=== PATIENT | male | born 1970 | race Two or more races ===

== ENCOUNTER 2018-01-08 01:36 | Emergency (ER) | payer SELFPAY ==
[~2018-01-08] VITALS: Ht 175.3 cm; Wt 68.0 kg
--- NOTE | 2018-01-08 02:00 | NUR ---
PT BBRA [id number] FROM [facility] C/C OF "IM TIRED OF MY LIFE". -SI, -HI. +ETOH ODOR NOTED COMING FROM PT. PT STATES "I DRANK 3 BEERS". VSS. SKIN WNL. PT IS AAOX4. RESP EVEN AND UNLABORED. NO S/S OF ACUTE DISTRESS NOTED. PT PLACED ON MONITOR AND POX. PT SAFETY AND COMFORT MEASURES IN PLACE. BEDSIDE FOR EVAL
--- NOTE | 2018-01-08 02:04 | NUR ---
PT TO RESTROOM TO GIVE URINE SAMPLE
[2018-01-08 02:26] LABS: BASOPHILS # (AUTO) 0.2 /CMM (0.0-0.2); BASOPHILS % (AUTO) 2.3 % (0.0-2.0); EOSINOPHILS % (AUTO) 2.2 % (0.0-6.0); HEMATOCRIT 35 % (39-51); HEMOGLOBIN 11.7 g/dL (13.5-17.5); LYMPHOCYTES # (AUTO) 2.6 /CMM (0.8-4.8); LYMPHOCYTES % (AUTO) 36.1 % (20.0-44.0); MEAN CORPUSCULAR HGB CONC 33 g/dl (31.0-36.0); MEAN CORPUSCULAR VOLUME 101 fL (80-96); MONOCYTES # (AUTO) 0.6 /CMM (0.1-1.30); MONOCYTES % (AUTO) 7.8 % (2.0-12.0); NEUTROPHILS # (AUTO) 3.8 /CMM (1.8-8.9); NEUTROPHILS % (AUTO) 51.6 % (43.0-81.0); PLATELET COUNT (AUTO) 524 /CMM (150-450); RDW COEFFICIENT OF VARIATION 15.4 (11.5-15.0); RED BLOOD CELL COUNT(AUTO) 3.49 MIL/uL (4.5-6.0); WHITE BLOOD COUNT (AUTO) 7.3 K/uL (4.3-11.0)
[2018-01-08 02:46] LABS: ALBUMIN 3.3 g/dL (3.4-5.0); BILIRUBIN,TOTAL 0.2 mg/dL (0.2-1.0); CALCIUM, SERUM 7.6 mg/dL (8.5-10.1); CREATININE 0.8 mg/dL (0.6-1.3); POTASSIUM 3.5 mmol/L (3.5-5.1); TOTAL PROTEIN, SERUM 7.2 g/dL (6.4-8.2)
[2018-01-08 03:12] LABS: SALICYLATE 2.4 mg/dL (2.8-20.0)
--- NOTE | 2018-01-08 07:34 | NUR ---
REPORT GIVEN TO CALIXTO SEN AND CALIXTO MCDANIELS FOR JOSE LUIS.
--- NOTE | 2018-01-08 10:08 | NUR ---
Patient is resting comfortably in bed with eyes closed. Easily aroused. VSS
[2018-01-08 12:32] VITALS: BP 124/78
== END 2018-01-08 12:32 | disposition home or self-care (01) ==
LOC: ER 01:38
DX: F10.229 Alcohol dependence with intoxication, unspecified (principal); F32.9 Major depressive disorder, single episode, unspecified; M79.672 Pain in left foot; M79.89 Other specified soft tissue disorders; Z59.0 Homelessness
CPT/HCPCS: 36415; 73630-TC; 80048-TC; 80076-TC; 80305; 85025-TC; A4606; G0480; Z7610

== ENCOUNTER 2018-12-14 03:13 | Emergency (ER) ==
[~2018-12-14] VITALS: Ht 170.2 cm; Wt 68.0 kg
--- NOTE | 2018-12-14 03:20 | NUR ---
BIB RA. FOUND UNCONSCIOUS AT [facility]. PT IS INTOXICATED. C/O SUICIDAL IDEATION EVIDENCED BY PT STATING "KILL ME." PT IS TELUGU SPEAKING. EMT REPORT THAT THE PT'S MOTHER JUST RECENTLY. TO ER BED 12. AWAITING MD FOR AVINASH
--- NOTE | 2018-12-14 03:25 | NUR ---
BODY CHECK DONE AND BELONGINGS FROM PT AND KEPT AT NURSING STATION
--- NOTE | 2018-12-14 04:20 | NUR ---
LAB TECT AT BEDSIDE FOR BLOOD DRAW
[2018-12-14 04:29] LABS: BASOPHILS # (AUTO) 0.1 /CMM (0.0-0.2); BASOPHILS % (AUTO) 2.3 % (0.0-2.0); EOSINOPHILS % (AUTO) 3.8 % (0.0-6.0); HEMATOCRIT 33 % (39-51); HEMOGLOBIN 11.1 g/dL (13.5-17.5); LYMPHOCYTES # (AUTO) 2.5 /CMM (0.8-4.8); LYMPHOCYTES % (AUTO) 40.1 % (20.0-44.0); MEAN CORPUSCULAR HGB CONC 34 g/dl (31.0-36.0); MEAN CORPUSCULAR VOLUME 92 fL (80-96); MONOCYTES # (AUTO) 0.4 /CMM (0.1-1.30); MONOCYTES % (AUTO) 6.6 % (2.0-12.0); NEUTROPHILS # (AUTO) 2.9 /CMM (1.8-8.9); NEUTROPHILS % (AUTO) 47.2 % (43.0-81.0); PLATELET COUNT (AUTO) 518 /CMM (150-450); RED BLOOD CELL COUNT(AUTO) 3.58 MIL/uL (4.5-6.0); WHITE BLOOD COUNT (AUTO) 6.2 K/uL (4.3-11.0)
[2018-12-14 04:39] LABS: CALCIUM, SERUM 8.3 mg/dL (8.5-10.1); POTASSIUM 3.5 mmol/L (3.5-5.1)
[2018-12-14 04:45] LABS: ALBUMIN 3.4 g/dL (3.4-5.0); BILIRUBIN,TOTAL 0.2 mg/dL (0.2-1.0); SALICYLATE 3.9 mg/dL (2.8-20.0); TOTAL PROTEIN, SERUM 7.3 g/dL (6.4-8.2)
[2018-12-14 04:54] LABS: APPEARANCE,URINE Clear (CLEAR); BILIRUBIN,URINE Negative (NEGATIVE); BLOOD, URINE Negative Ery/uL (NEGATIVE); COLOR,URINE Yellow (YELLOW); KETONES,URINE Negative (NEGATIVE); LEUKOCYTE ESTERASE ,URINE Negative (NEGATIVE); NITRITE, URINE Negative (NEGATIVE); PROTEIN,URINE Negative (NEGATIVE); UGLUCOSE Negative (NEGATIVE); UROBILINOGEN,URINE 0.2 EU/dL (0.2)
--- NOTE | 2018-12-14 05:50 | NUR ---
PT IN BED SLEEPING. EASILY ARROUSABLE
--- NOTE | 2018-12-14 07:15 | NUR ---
ASSUME PT CARE. PT IS SLEEPING, EASILY AROUSABLE. ON MONITOR. STABLE VITALS. KEPT COMFORTABLE. WILL CONTINUE TO MONITOR.
--- NOTE | 2018-12-14 07:38 | NUR ---
REPORT GIVEN TO CALIXTO FORD FOR JOSE LUIS
--- NOTE | 2018-12-14 11:45 | NUR ---
DR SORTO BACK AT BEDSIDE TALKING TO PT ABOUT PLAN OF CARE, DENIES ANY SI AT THIS TIME. REQUESTING HELP FROM MUNICIPAL SERVICES MANAGER.
--- NOTE | 2018-12-14 12:00 | NUR ---
TRACER CLERK TEMO AT BEDSIDE TALKING TO PT.
--- NOTE | 2018-12-14 12:08 | NUR ---
Social service consult requested by ED RN Benjie for homelessness and alcohol abuse. Per ER H&P, Pt. is a 48-year-old male who presents to the emergency department acutely intoxicated with complaints of suicidal ideation. Patient states that he has been depressed since his mother recently. He does also admit to drinking alcohol heavily tonight. Pt. denies any specific plan to hurt himself. GARETH met with pt. bedside. Pt. is Slovenian speaking. Myrna from admitting dept. assisted in translating. Pt. appeared disheveled. Pt's mood is congruent. Pt. has been homeless for the past 8 months. Pt. lives [address] in [place] and wants to go back there. Pt. was not able to state where he lived prior to becoming homeless. Pt. states he is feeling depressed since his mother , however denies any suicidal/homicidal ideations and visual/auditory hallucinations. Pt. is an alcoholic and drinks two 24 ounces of beer daily. Pt. has no source of income and stated he recycles to get his alcohol and panhandles to get food. SW offered pt. longterm placement, however pt. declined. Pt. is willing to get homeless resources that include meals, shower, housing. GARETH gave pt. the following resources: [facility] located at [address] [facility] ; [facility] [place], [address] [place] [address] [place]. [place] ; [facility] [place], [address] [facility]. A ; [facility] Homeless Resource Directory which includes food stamps, transitional housing, showers and hot meals etc; Mental Health clinics such as [facility] ; [facility] ; Health clinics;[facility] and Alcohol treatment centers such as [facility], ; [facility] Substance Abuse Hotline and [facility] . Pt. was offered lunch, however pt. declined. Pt. was provided with a TAP card. Homeless patient waiver form in Slovenian was signed by the pt. and placed in pt's chart. SW updated Dr. Monroy and pt's RN Benjie regarding pt's discharge plan.
--- NOTE | 2018-12-14 12:13 | NUR ---
Mal guerrero in ED - 12/14/18 at 1215 by STEVEN PEARL GLUE OPERATOR AND PT AMBULATORY W/ STEADY GAIT. MADELAINE JACOBS TALKED TO PEARL GLUE OPERATOR. D/C HOME IN STABLE CONDITION.
--- NOTE | 2018-12-14 12:13 | NUR ---
PT AMBULATORY W/ STEADY GAIT. DENIES SI. TALKED TO FIRE FIGHTING EQUIPMENT SPECIALIST. D/C HOME IN STABLE CONDITION.
[2018-12-14 12:16] VITALS: BP 116/62
== END 2018-12-14 12:17 | disposition home or self-care (01) ==
LOC: ER 03:15
DX: F10.129 Alcohol abuse with intoxication, unspecified (principal); F32.9 Major depressive disorder, single episode, unspecified; Z60.2 Problems related to living alone; Y90.8 Blood alcohol level of 240 mg/100 ml or more
CPT/HCPCS: 36415; 80048; 80076; 80305; 80307; 80329; 81001; 85025; 99283; G0480; 81000-TC

== ENCOUNTER 2019-02-08 16:01 | Emergency (ER) | payer MEDICAID ==
[~2019-02-08] VITALS: Ht 160 cm; Wt 72.6 kg
--- NOTE | 2019-02-08 16:15 | NUR ---
SHARYN AND [employer] FROM STREET C/O SI "I WANT TO RUN THRU TRAFFIC." SUICIDAL PRECAUTION INITIATED. STATES HE IS VERY DEPRESSED, JUST LOST EVERYTHING. DENIES SI IN THE PAST. CONTINUOUSLY ASKING FOR HELP. PT PLACED IN GOWN. SITTER AT BEDSIDE. READY FOR EVAL. WILL CONT TO MONITOR.
--- NOTE | 2019-02-08 16:21 | NUR ---
BLOOD DRAWN, URINE COLLECTED, PT WANDED BY SECURITY
[2019-02-08 16:23] LABS: BASOPHILS # (AUTO) 0.3 /CMM (0.0-0.2); BASOPHILS % (AUTO) 4.4 % (0.0-2.0); HEMATOCRIT 34 % (39-51); HEMOGLOBIN 11.2 g/dL (13.5-17.5); LYMPHOCYTES # (AUTO) 2.2 /CMM (0.8-4.8); LYMPHOCYTES % (AUTO) 35.1 % (20.0-44.0); MEAN CORPUSCULAR HGB CONC 33 g/dl (31.0-36.0); MEAN CORPUSCULAR VOLUME 94 fL (80-96); MONOCYTES # (AUTO) 0.8 /CMM (0.1-1.30); MONOCYTES % (AUTO) 12.1 % (2.0-12.0); NEUTROPHILS % (AUTO) 47.4 % (43.0-81.0); PLATELET COUNT (AUTO) 363 /CMM (150-450); WHITE BLOOD COUNT (AUTO) 6.4 K/uL (4.3-11.0)
[2019-02-08 16:30] LABS: APPEARANCE,URINE Clear (CLEAR); BILIRUBIN,URINE Negative (NEGATIVE); BLOOD, URINE Negative Ery/uL (NEGATIVE); COLOR,URINE Yellow (YELLOW); KETONES,URINE Negative (NEGATIVE); LEUKOCYTE ESTERASE ,URINE Negative (NEGATIVE); NITRITE, URINE Negative (NEGATIVE); PH,URINE 6.5 (5.0-8.0); PROTEIN,URINE Negative (NEGATIVE); UGLUCOSE Negative (NEGATIVE); UROBILINOGEN,URINE 0.2 EU/dL (0.2)
[2019-02-08 16:38] LABS: CALCIUM, SERUM 8.4 mg/dL (8.5-10.1); CARBON DIOXIDE 25 mmol/L (21-32); CHLORIDE 103 mmol/L (98-107); CREATININE 0.8 mg/dL (0.6-1.3); GLUCOSE 116 mg/dL (74-106); POTASSIUM 3.7 mmol/L (3.5-5.1); SODIUM SERUM 141 mmol/L (136-145); UREA NITROGEN, BLOOD 4 mg/dL (7-18)
[2019-02-08 16:44] LABS: ALANINE AMINOTRANSFERASE 72 U/L (12-78); ALBUMIN 3.5 g/dL (3.4-5.0); ALCOHOL, BLOOD 321 mg/dL (0-0); ALKALINE PHOSPHATASE 93 U/L (46-116); ASPARTATE AMINOTRANSFERASE 51 U/L (15-37); BILIRUBIN,DIRECT 0.1 mg/dL (0.0-0.2); BILIRUBIN,TOTAL 0.2 mg/dL (0.2-1.0); TOTAL PROTEIN, SERUM 7.6 g/dL (6.4-8.2)
--- NOTE | 2019-02-08 16:50 | NUR ---
BLOOD ALCOHOL LEVEL TOO HIGH AT THIS TIME. WILL REASSESS IN 2 HOURS BEFORE CALLING [employer] CUTTER [employer].
[2019-02-08 16:51] LABS: ACETAMINOPHEN < 2 ug/ml (10-30)
--- NOTE | 2019-02-08 18:09 | NUR ---
PT ASLEEP IN BED. NO COMPLAINTS AT THIS TIME. WILL CONT TO MONITOR.
[2019-02-08] MEDS ORDERED: LORAZEPAM 1 MG TABLET PO ONE (19:00)
[2019-02-08] MEDS ORDERED: LORAZEPAM 1 MG TABLET ONE (19:08)
--- NOTE | 2019-02-08 21:02 | NUR ---
PT STILL SLEEPING. SITTER AT BEDSIDE. VSS. WILL CONT TO MONITOR.
[2019-02-09 01:19] VITALS: BP 112/78
== END 2019-02-09 01:19 | disposition home or self-care (01) ==
LOC: ER 16:02
DX: F32.9 Major depressive disorder, single episode, unspecified (principal); F10.20 Alcohol dependence, uncomplicated; R45.851 Suicidal ideations; Y90.6 Blood alcohol level of 120-199 mg/100 ml
CPT/HCPCS: 36415; 80048; 80076; 80305; 80307 ×2; 80329; 81001; 84484; 85025; 99284; G0480; 81000-TC

== ENCOUNTER 2019-02-09 14:42 | Emergency (ER) | payer MEDICAID ==
[~2019-02-09] VITALS: Ht 175.3 cm; Wt 81.6 kg
--- NOTE | 2019-02-09 14:57 | NUR ---
[id number] [facility] FOR ETOH; VERBALIZES S/I WITH NO PLAN HT=[id number]. WAS SEEN HERE YESTERDAY FOR SAME ISSUE. DENIES HI OR A/V HALLUCINATIONS. SUICIDAL PRECAUTIONS IMPLEMENTED: PLACED IN GOWN, BELONGINGS BROUGHT TO NURSES' STATION, PT WANDED BY SECURITY. ER BED 14, READY FOR EVAL.
[2019-02-09 15:01] LABS: APPEARANCE,URINE Clear (CLEAR); BILIRUBIN,URINE Negative (NEGATIVE); BLOOD, URINE Negative Ery/uL (NEGATIVE); COLOR,URINE Yellow (YELLOW); KETONES,URINE Negative (NEGATIVE); LEUKOCYTE ESTERASE ,URINE Negative (NEGATIVE); NITRITE, URINE Negative (NEGATIVE); PROTEIN,URINE Negative (NEGATIVE); UGLUCOSE Negative (NEGATIVE); UROBILINOGEN,URINE 0.2 EU/dL (0.2)
[2019-02-09 15:07] LABS: BASOPHILS # (AUTO) 0.2 /CMM (0.0-0.2); EOSINOPHILS % (AUTO) 2.9 % (0.0-6.0); HEMATOCRIT 35 % (39-51); HEMOGLOBIN 11.5 g/dL (13.5-17.5); LYMPHOCYTES # (AUTO) 2.1 /CMM (0.8-4.8); MEAN CORPUSCULAR HGB CONC 33 g/dl (31.0-36.0); MEAN CORPUSCULAR VOLUME 93 fL (80-96); MONOCYTES # (AUTO) 0.7 /CMM (0.1-1.30); MONOCYTES % (AUTO) 11.8 % (2.0-12.0); NEUTROPHILS # (AUTO) 2.7 /CMM (1.8-8.9); NEUTROPHILS % (AUTO) 45.3 % (43.0-81.0); PLATELET COUNT (AUTO) 396 /CMM (150-450); WHITE BLOOD COUNT (AUTO) 5.9 K/uL (4.3-11.0)
[2019-02-09 15:31] LABS: ALBUMIN 3.6 g/dL (3.4-5.0); BILIRUBIN,DIRECT 0.1 mg/dL (0.0-0.2); BILIRUBIN,TOTAL 0.3 mg/dL (0.2-1.0); CALCIUM, SERUM 8.7 mg/dL (8.5-10.1); CREATININE 0.8 mg/dL (0.6-1.3); POTASSIUM 3.3 mmol/L (3.5-5.1); TOTAL PROTEIN, SERUM 7.6 g/dL (6.4-8.2)
[2019-02-09 16:14] LABS: ACETAMINOPHEN < 2 ug/ml (10-30); SALICYLATE < 2.8 mg/dL (2.8-20.0)
--- NOTE | 2019-02-09 17:38 | NUR ---
Patient is resting comfortably in bed with eyes closed. Easily aroused. VSS
--- NOTE | 2019-02-09 19:03 | NUR ---
PT PROVIDED FOOD TRAY
[2019-02-09] MEDS ORDERED: LORAZEPAM 1 MG TABLET ONE (20:55)
[2019-02-09] MEDS ORDERED: LORAZEPAM 1 MG TABLET PO ONE (21:00)
--- NOTE | 2019-02-09 21:27 | NUR ---
OIL FIELD CASER AT BEDSIDE FOR BLOOD ALCOHOL REDRAW
--- NOTE | 2019-02-09 23:16 | NUR ---
Patient is resting comfortably in bed with eyes closed. Easily aroused. VSS
--- NOTE | 2019-02-10 01:30 | NUR ---
PT RESTING IN BED, NAD NOTED. WILL CONTINUE TO MONITOR.
--- NOTE | 2019-02-10 04:07 | NUR ---
REPORT GIVEN TO CALIXTO VALLEJO FOR JOSE LUIS AT [facility].
--- NOTE | 2019-02-10 04:13 | NUR ---
RIKKI CALLED ETA [phone]. TRANSFER#[id number]
--- NOTE | 2019-02-10 06:18 | NUR ---
Mal guerrero in ED - 02/10/19 at 0621 by SOFIA Patient discharged to home in stable condition. Written and verbal after care instructions given. Patient verbalizes understanding of instruction.
--- NOTE | 2019-02-10 06:18 | NUR ---
PT REFUSED TRANSPORT TO [facility], STATES HE DOES NOT WANT TO GO THERE. PT DENIES HI/SI. SHAHRIAR RYAN AWARE.
[2019-02-10 06:21] VITALS: BP 125/70
--- NOTE | 2019-02-10 06:21 | NUR ---
Patient given written and verbal discharge instructions. Patient verbalizes understanding of instructions. Patient is ambulatory with steady gait. Refuses offer of detention placement. Patient given list of available shelters in surrounding area.
== END 2019-02-10 06:22 | disposition home or self-care (01) ==
LOC: ER 14:44
DX: F32.9 Major depressive disorder, single episode, unspecified (principal); F10.129 Alcohol abuse with intoxication, unspecified; Z60.2 Problems related to living alone; Z59.0 Homelessness; Y90.8 Blood alcohol level of 240 mg/100 ml or more
CPT/HCPCS: 36415 ×2; 80048; 80076; 80305; 80307 ×5; 80329; 81001; 85025; 99284; G0480; 81000-TC

== ENCOUNTER 2019-05-30 19:46 | Emergency (ER) | payer MEDICAID ==
[~2019-05-30] VITALS: Ht 172.7 cm; Wt 81.6 kg
--- NOTE | 2019-05-30 19:53 | NUR ---
URINE SAMPLE COLLECTED. PT GOWNED, ALL BELONGINGS REMOVED FROM ROOM. PENDING ER MD DA SILVA.
[2019-05-30 20:07] LABS: HEMOGLOBIN 10.4 g/dL (13.5-17.5); LYMPHOCYTES # (AUTO) 2.3 /CMM (0.8-4.8); MEAN CORPUSCULAR HGB CONC 32 g/dl (31.0-36.0); MONOCYTES # (AUTO) 0.6 /CMM (0.1-1.30); WHITE BLOOD COUNT (AUTO) 6.5 K/uL (4.3-11.0)
[2019-05-30] MEDS ORDERED: ACETAMINOPHEN ES 500 MG TABLET ONE (20:08)
[2019-05-30 20:11] LABS: BASOPHILS # (AUTO) 0.1 /CMM (0.0-0.2); BASOPHILS % (AUTO) 0.9 % (0.0-2.0); EOSINOPHILS % (AUTO) 5.7 % (0.0-6.0); HEMATOCRIT 32 % (39-51); LYMPHOCYTES % (AUTO) 35.8 % (20.0-44.0); MEAN CORPUSCULAR VOLUME 86 fL (80-96); MONOCYTES % (AUTO) 8.8 % (2.0-12.0); NEUTROPHILS # (AUTO) 3.2 /CMM (1.8-8.9); NEUTROPHILS % (AUTO) 48.8 % (43.0-81.0); PLATELET COUNT (AUTO) 384 /CMM (150-450); RED BLOOD CELL COUNT(AUTO) 3.71 MIL/uL (4.5-6.0)
[2019-05-30] MEDS: ACETAMINOPHEN 325 MG TABLET PO ONE (20:13)
[2019-05-30 20:14] LABS: APPEARANCE,URINE Clear (CLEAR); BILIRUBIN,URINE Negative (NEGATIVE); BLOOD, URINE Trace-intact Ery/uL (NEGATIVE); COLOR,URINE Yellow (YELLOW); KETONES,URINE Negative (NEGATIVE); LEUKOCYTE ESTERASE ,URINE Negative (NEGATIVE); NITRITE, URINE Negative (NEGATIVE); PH,URINE 5.5 (5.0-8.0); PROTEIN,URINE Negative (NEGATIVE); UGLUCOSE Negative (NEGATIVE); UROBILINOGEN,URINE 0.2 EU/dL (0.2)
--- NOTE | 2019-05-30 20:19 | NUR ---
BIB EMS C/O "I'M TIRED OF THIS LIFE" SI WITH PLAN TO DRINK HIMSELF TO . (+) ETOH. DENIES HI. PT AAOX3, VSS. RR EVEN & UNLABORED. DENIES CP, SOB, DIZZINESS, N/V @ THIS TIME. PT SEEN & EVAL'D BY RACHAEL FAUST. REFUSED TYLENOL. WILL CONT TO MONITOR.
[2019-05-30 20:21] LABS: ALANINE AMINOTRANSFERASE 71 U/L (12-78); ALBUMIN 3.8 g/dL (3.4-5.0); ALCOHOL, BLOOD 447 mg/dL (0-0); ALKALINE PHOSPHATASE 102 U/L (46-116); ASPARTATE AMINOTRANSFERASE 70 U/L (15-37); BILIRUBIN,DIRECT 0.1 mg/dL (0.0-0.2); BILIRUBIN,TOTAL 0.1 mg/dL (0.2-1.0); CALCIUM, SERUM 8.2 mg/dL (8.5-10.1); CARBON DIOXIDE 27 mmol/L (21-32); CHLORIDE 106 mmol/L (98-107); CREATININE 0.8 mg/dL (0.6-1.3); GLUCOSE 128 mg/dL (74-106); POTASSIUM 3.4 mmol/L (3.5-5.1); SALICYLATE 3.4 mg/dL (2.8-20.0); SODIUM SERUM 142 mmol/L (136-145); TOTAL PROTEIN, SERUM 8.3 g/dL (6.4-8.2); UREA NITROGEN, BLOOD 7 mg/dL (7-18)
[2019-05-30 20:22] LABS: BACTERIA,URINE Rare /HPF (None Seen); SQUAMOUS EPITHELIAL CELL,UR Few /HPF (None Seen); WBC,URINE NONE SEEN /HPF (0-3)
[2019-05-30 20:24] LABS: ACETAMINOPHEN < 2 ug/ml (10-30)
--- NOTE | 2019-05-30 23:15 | NUR ---
Patient is resting comfortably in bed with eyes closed. Easily aroused. VSS
--- NOTE | 2019-05-30 23:46 | NUR ---
Assumed care of pt. Pt resting supine in bed, HOB elevated, resp even & unlabored, no acute distress noted. Bed low to ground w/ siderails up for safety. Will continue to monitor.
--- NOTE | 2019-05-31 01:18 | NUR ---
Pt continues to sleep in bed, HOB elevated w/ nad noted. Will continue to monitor.
--- NOTE | 2019-05-31 02:30 | NUR ---
Pt resting supine in bed w/ resp even & unlabored, able to turn self in bed w/ no acute distress noted. Bed low to ground w/ siderails up for safety. Will continue to monitor.
--- NOTE | 2019-05-31 04:05 | NUR ---
Pt on continuous monitoring, sleeping, repositioning self in bed w/ no acute distress noted.
--- NOTE | 2019-05-31 04:56 | NUR ---
pt ambulatory w/ steady gait to restroom.
--- NOTE | 2019-05-31 06:44 | NUR ---
Patient AOx4, calm and cooperative, ambulatory w/ steady gait, resp even & unlabored w/ no acute distress noted. Patient discharged to home in stable condition. Written and verbal after care instructions given. Patient verbalizes understanding of instruction.
[2019-05-31 06:50] VITALS: BP 142/94
== END 2019-05-31 06:51 | disposition home or self-care (01) ==
LOC: ER 19:47
DX: F10.229 Alcohol dependence with intoxication, unspecified (principal); R45.851 Suicidal ideations; E87.6 Hypokalemia; D64.9 Anemia, unspecified; R74.0 Nonspecific elevation of levels of transaminase and lactic acid dehydrogenase [LDH]; R31.9 Hematuria, unspecified; F32.9 Major depressive disorder, single episode, unspecified; Y90.8 Blood alcohol level of 240 mg/100 ml or more; Z59.0 Homelessness; Z72.0 Tobacco use
CPT/HCPCS: 36415; 80048; 80076; 80305; 80307; 80329; 81001; 85025; 99284; 99406; G0480; 81000-TC